=== PATIENT | male | born 1985 | race Hispanic/Latino ===

== ENCOUNTER 2025-04-08 11:52 | Emergency (ER) | payer BC ==
[2025-04-08] MEDS ORDERED: LIDOCAINE 2% W/EPI 1:200,000 MPF 20 ML VIAL IM ONE (12:44)
[2025-04-08] MEDS ORDERED: SMZ./TMP. 800/160 MG TABLET ONE (12:44)
[2025-04-08] MEDS ORDERED: DOXYCYCLINE 100 MG CAP PO ONE (12:45)
[2025-04-08] MEDS ORDERED: MUPIROCIN 2% OINT 22GM TUBE TOP ONE (12:45)
--- NOTE | 2025-04-08 14:17 | ER ---
Nurse's Notes [facility] Name: Wilfrid Brewster Age: 39 yrs Sex: Male : 1985 Arrival Date: 04/08/2025 Time: 11:52 Bed 20 Private MD: Diagnosis: Cutaneous abscess of chest wall-sp I AND D Presentation: 04/08 12:18 Chief complaint: Patient states: abscess to left axilla X 5 days. Coronavirus screen: iw At this time, the client does not indicate any symptoms associated with coronavirus-19. Ebola Screen: No symptoms or risks identified at this time. Initial Sepsis Screen: Does the patient meet any 2 criteria? No. Patient's initial sepsis screen is negative. Does the patient have a suspected source of infection? No. Patient's initial sepsis screen is negative. Risk Assessment: Do you want to hurt yourself or someone else? Patient reports no desire to harm self or others. Onset of symptoms was April 08, 2025. 12:18 Method Of Arrival: Ambulatory iw 12:18 Acuity: KAREN 4 iw Historical: - Allergies: 12:19 No Known Allergies; iw - Home Meds: 12:19 None [Active]; iw - PMHx: 12:19 None; iw - Immunization history:: Adult Immunizations unknown. - Infectious Disease History:: Denies. - Family history:: not pertinent. - Social history:: Smoking status: unknown. Screenin:30 [facility] ED Fall Risk Assessment (Adult) History of falling in the last 3 months, rg5 including since admission No falls in past 3 months (0 pts) Confusion or Disorientation No (0 pts) Intoxicated or Sedated No (0 pts) Impaired Gait No (0 pts) Mobility Assist Device Used No (0 pt) Altered Elimination No (0 pt) Score/Fall Risk Level 3 or more points = High Risk Oriented to surroundings, Maintained a safe environment. Abuse screen: Denies threats or abuse. Nutritional screening: No deficits noted. Tuberculosis screening: No symptoms or risk factors identified. Assessment: 12:30 General: Appears in no apparent distress. comfortable, Behavior is calm, cooperative, rg5 appropriate for age. 12:30 Pain: Complains of pain in left lateral anterior chest Quality of pain is described as rg5 aching. Neuro: Level of Consciousness is awake, alert, obeys commands, Oriented to person, place, time, situation. Cardiovascular: Denies chest pain, Patient's skin is warm and dry. Respiratory: Airway is patent Trachea midline Respiratory effort is even, unlabored, Respiratory pattern is regular, symmetrical. GI: Abdomen is flat, non-distended. : No signs and/or symptoms were reported regarding the genitourinary system. EENT: No signs and/or symptoms were reported regarding the EENT system. Derm: Abscess located on left lateral anterior chest is golf ball sized, Reports pain. Musculoskeletal: Circulation, motion, and sensation intact. Range of motion: intact in all extremities. 13:30 Reassessment: No changes from previously documented assessment. Patient and/or family rg5 updated on plan of care and expected duration. Pain level reassessed. Patient is alert, oriented x 3, equal unlabored respirations, skin warm/dry/pink. 14:34 Reassessment: Patient and/or family updated on plan of care and expected duration. Pain rg5 level reassessed. Patient is alert, oriented x 3, equal unlabored respirations, skin warm/dry/pink. Vital Signs: 12:18 BP 120 / 81; Pulse 64; Resp 16; Pulse Ox 100% on R/A; Weight 83.91 kg; Height 5 ft. 10 iw in. ; 12:21 Temp 99(O); iw 13:00 BP 123 / 81; Pulse 65; Resp 18; Pulse Ox 100% ; rg5 14:00 BP 121 / 82; Pulse 65; Resp 18; Pulse Ox 99% ; rg5 12:18 Body Mass Index 26.54 (83.91 kg, 177.8 cm) iw ED Course: 11:55 Patient arrived in ED. al6 12:14 Pineda Murillo MD is Attending Physician. bib 12:19 Triage completed. iw 12:30 Patient has correct armband on for positive identification. Placed in gown. Door rg5 closed. Noise minimized. 12:39 Reginald Diaz, FELIX is Primary Nurse. rg5 13:56 Wound Culture Sent. rg5 14:00 Assist provider with I \T\ D: of an abscess on Set up I\T\D tray. Performed by Pineda rg 5 Chidi ARELLANO Culture sent to lab. Wound packed. Dressing with 4X4s, Patient tolerated. 14:00 Patient did not have IV access during this emergency room visit. rg5 14:15 Cal Skinner MD is Referral Physician. [facility] Administered Medications: 12:49 Drug: Trimethoprim-Sulfamethoxazole PO (160 mg-800 mg (DS) 1 tablet PO once Route: PO; rg5 14:00 Follow up: Response: No adverse reaction rg5 12:50 Drug: Doxycycline PO 200 mg PO once Route: PO; rg5 13:59 Follow up: Response: No adverse reaction rg5 13:59 Drug: Mupirocin Topical Ointment 2 % 1 application Topical once Route: Topical; Site: rg5 affected area; 13:59 Drug: Lidocaine-Epinephrine Infiltration -1%: (1:100,000) 10 ml 20 ml Infiltration rg5 once; to bedside {Note: given by provider.} Volume: 20 ml; Route: Infiltration; Medication: 12:30 VIS not applicable for this client. rg5 Outcome: 14:16 Discharge ordered by . [facility] 14:34 Discharged to home ambulatory, rg5 14:34 Condition: stable 14:34 Discharge instructions given to patient, Instructed on discharge instructions, Demonstrated understanding of instructions, Prescriptions given X 3, 14:36 Patient left the ED. rg5 Signatures: Pineda Murillo MD MD cha Williams, Irene, RN Reginald Barber RN RN rg Vonnie Matthews
--- NOTE | 2025-04-08 14:17 | EDPHYS ---
Physician Documentation [facility] Name: Wilfrid Brewster Age: 39 yrs Sex: Male : 1985 Arrival Date: 04/08/2025 Time: 11:52 Bed 20 Private MD: ED Physician Pineda Murillo HPI: 04/08 14:07 This 39 yrs old Male presents to ER via Ambulatory with complaints of Abscess. bib 14:07 The patient presents with an abscess of the left lateral anterior chest and left bib lateral posterior chest. Description: The affected area is small, moderate sized, confluent. Onset: The symptoms/episode began/occurred 6 day(s) ago. Possible cause(s): unknown. Associated signs and symptoms: The patient has no apparent associated signs or symptoms. Severity of symptoms: At their worst the symptoms were moderate, in the emergency department the symptoms are actually worse. Historical: - Allergies: 12:19 No Known Allergies; iw - Home Meds: 12:19 None [Active]; iw - PMHx: 12:19 None; iw - Immunization history:: Adult Immunizations unknown. - Infectious Disease History:: Denies. - Family history:: not pertinent. - Social history:: Smoking status: unknown. ROS: 14:07 Constitutional: Negative for fever, chills, and weight loss, Eyes: Negative for injury, bib pain, redness, and discharge, ENT: Negative for injury, pain, and discharge, Neck: Negative for injury, pain, and swelling, Cardiovascular: Negative for chest pain, palpitations, and edema, Respiratory: Negative for shortness of breath, cough, wheezing, and pleuritic chest pain, Abdomen/GI: Negative for abdominal pain, nausea, vomiting, diarrhea, and constipation, Back: Negative for injury and pain, : Negative for injury, bleeding, discharge, and swelling, MS/Extremity: Negative for injury and deformity, Neuro: Negative for headache, weakness, numbness, tingling, and seizure, Psych: Negative for depression, anxiety, suicide ideation, homicidal ideation, and hallucinations, Allergy/Immunology: Negative for hives, rash, and allergies, Endocrine: Negative for neck swelling, polydipsia, polyuria, polyphagia, and marked weight changes, Hematologic/Lymphatic: Negative for swollen nodes, abnormal bleeding, and unusual bruising, 14:07 Skin: Positive for abscess, cellulitis, of the left lateral anterior chest and left lateral posterior chest, Exam: 14:07 Constitutional: This is a well developed, well nourished patient who is awake, alert, bib and in no acute distress. Head/Face: Normocephalic, atraumatic. Eyes: Pupils equal round and reactive to light, extra-ocular motions intact. Lids and lashes normal. Conjunctiva and sclera are non-icteric and not injected. Cornea within normal limits. Periorbital areas with no swelling, redness, or edema. ENT: Nares patent. No nasal discharge, no septal abnormalities noted. Tympanic membranes are normal and external auditory canals are clear. Oropharynx with no redness, swelling, or masses, exudates, or evidence of obstruction, uvula midline. Mucous membranes moist. Neck: Trachea midline, no thyromegaly or masses palpated, and no cervical lymphadenopathy. Supple, full range of motion without nuchal rigidity, or vertebral point tenderness. No Meningismus. Chest/axilla: Normal chest wall appearance and motion. Nontender with no deformity. No lesions are appreciated. Cardiovascular: Regular rate and rhythm with a normal S1 and S2. No gallops, murmurs, or rubs. Normal PMI, no JVD. No pulse deficits. Respiratory: Lungs have equal breath sounds bilaterally, clear to auscultation and percussion. No rales, rhonchi or wheezes noted. No increased work of breathing, no retractions or nasal flaring. Abdomen/GI: Soft, non-tender, with normal bowel sounds. No distension or tympany. No guarding or rebound. No evidence of tenderness throughout. Back: No spinal tenderness. No costovertebral tenderness. Full range of motion. Male : Normal genitalia with no discharge or lesions. MS/ Extremity: Pulses equal, no cyanosis. Neurovascular intact. Full, normal range of motion., bilateral aka Neuro: Awake and alert, GCS 15, oriented to person, place, time, and situation. Cranial nerves II-XII grossly intact. Motor strength 5/5 in all extremities. Sensory grossly intact. Cerebellar exam normal. Normal gait. Psych: Awake, alert, with orientation to person, place and time. Behavior, mood, and affect are within normal limits. 14:07 Skin: abscess, that is moderate sized, of the left lateral anterior chest and left lateral posterior chest, cellulitis, that is moderate, induration, that is moderate is noted, Vital Signs: 12:18 BP 120 / 81; Pulse 64; Resp 16; Pulse Ox 100% on R/A; Weight 83.91 kg; Height 5 ft. 10 iw in. ; 12:21 Temp 99(O); iw 13:00 BP 123 / 81; Pulse 65; Resp 18; Pulse Ox 100% ; rg5 14:00 BP 121 / 82; Pulse 65; Resp 18; Pulse Ox 99% ; rg5 12:18 Body Mass Index 26.54 (83.91 kg, 177.8 cm) iw Procedures: 14:18 I \T\ D: Incision and drainage was performed for an abscess of the left Prepped with [facility] Betadine, Anesthetized with 8 ml's 1% Lidocaine w/ Epi. Incised with #11 blade. Drained moderate amount purulent fluid. serosanguinous fluid. Packed with iodoform gauze, Dressing: non-Adherent dressing, the patient tolerated the procedure well. MDM: 12:14 Medical Screening Exam initiated [facility] 14:13 Differential diagnosis: abscess, allergic reaction, cellulitis, insect bite. Data [facility] reviewed: vital signs, nurses notes, lab test result(s), glucose 95. Consideration of Admission/Observation Escalation of care including admission/observation considered. I considered the following discharge prescriptions or medication management in the emergency department Medications were administered in the Emergency Department. See MAR. Test considered but Not performed: Labs: no cbc , no comp met. Historians other than the Patient: pt. Care significantly affected by the following chronic conditions: none. 04/08 13:04 Order name: Glucose, Ancillary Testing; Complete Time: 14:07 EDHI 04/08 13:55 Order name: Wound Culture me1 04/08 12:33 Order name: Blood Glucose Level; Complete Time: 12:56 bib 04/08 12:33 Order name: Dressing - Wound; Complete Time: 13:59 bib 04/08 12:33 Order name: Gloves, Sterile; Complete Time: 12:49 bib 04/08 12:33 Order name: Setup Suture Tray; Complete Time: 12:49 bib 04/08 12:33 Order name: Misc. Order: IODOFORM; Complete Time: 12:57 [facility] Administered Medications: 12:49 Drug: Trimethoprim-Sulfamethoxazole PO (160 mg-800 mg (DS) 1 tablet PO once Route: PO; rg5 14:00 Follow up: Response: No adverse reaction rg5 12:50 Drug: Doxycycline PO 200 mg PO once Route: PO; rg5 13:59 Follow up: Response: No adverse reaction rg5 13:59 Drug: Mupirocin Topical Ointment 2 % 1 application Topical once Route: Topical; Site: rg5 affected area; 13:59 Drug: Lidocaine-Epinephrine Infiltration -1%: (1:100,000) 10 ml 20 ml Infiltration rg5 once; to bedside {Note: given by provider.} Volume: 20 ml; Route: Infiltration; Disposition Summary: 04/08/25 14:16 Discharge Ordered Notes: Location: Home bib Problem: new bib Symptoms: have improved bib Condition: Stable bib Diagnosis - Cutaneous abscess of chest wall - sp I AND D bib Followup: bib - With: Private Physician - When: 2 - 3 days - Reason: Recheck today's complaints, Continuance of care, Re-evaluation by your physician Followup: bib - With: Cal Skinner MD - When: 2 - 3 days - Reason: Recheck today's complaints, Continuance of care, Re-evaluation by your physician Discharge Instructions: - Discharge Summary Sheet bib - Skin Abscess bib - Incision and Drainage bib - Skin Abscess, [id number] bib - Incision and Drainage, Care After bib Forms: - Medication Reconciliation Form bib - Antibiotic Education bib - Prescription Opioid Use bib - Patient Portal Instructions [facility] - Leadership Thank You Letter bib - Work release form iw Prescriptions: - Centany 2 % Topical ointment - apply 1 application TOPICAL route 3 times per day; 15 gram tube; Refills: 0, [facility] Product Selection Permitted - Doxycycline Hyclate 100 mg Oral Tablet - take 1 tablet ORAL route every 12 hours; 20 tablet; Refills: 0, Product bib Selection Permitted - Bactrim DS 800-160 mg Oral Tablet - take 1 tablet ORAL route every 12 hours for 10 days; 20 tablet; Refills: 0, [facility] Product Selection Permitted - Tylenol-Codeine #3 300mg-30mg Oral tablet - take 2 tablets ORAL route every 6 hours As needed; 16 tablet; Refills: 0, [facility] Product Selection Permitted Signatures: Dispatcher [employer] Pineda Ornelas MD MD cha Williams, Irene, RN RN iw Reginald Diaz, RN RN rg5
[2025-04-08 14:43] VITALS: TEMP 99
[2025-04-08 14:49] VITALS: BP 121/82; O2SAT 99
== END 2025-04-08 14:36 | disposition home or self-care (01) ==
LOC: ER 11:52
PROC: 0H95XZZ Drainage of Chest Skin, External Approach (ICD-10-PCS; principal; 2025-04-08)
DX: L02.213 Cutaneous abscess of chest wall (principal); L03.313 Cellulitis of chest wall
CPT/HCPCS: 82947; 87070; 87077; 87186; 87205; 99284

== ENCOUNTER 2025-04-12 11:38 | Emergency (ER) | payer BC ==
--- NOTE | 2025-04-12 12:00 | ER ---
Nurse's Notes [facility] Name: Wilfrid Brewster Age: 39 yrs Sex: Male : 1985 Arrival Date: 04/12/2025 Time: 11:38 Bed IW3 Private MD: Diagnosis: Cutaneous abscess of left axilla Presentation: 04/12 11:49 Chief complaint: Patient states: ABSCESS TO LEFT AXILLA. HERE FOR CHECK. STATES SEEN ON db 04/08 AND STARTED ON ANTIBIOTICS. Coronavirus screen: Client denies travel out of the [place] in the last 14 days. At this time, the client does not indicate any symptoms associated with coronavirus-19. Ebola Screen: Patient negative for fever greater than or equal to 101.5 degrees Fahrenheit, and additional compatible Ebola Virus Disease symptoms Patient denies exposure to infectious person. Patient denies travel to an Ebola-affected area in the 21 days before illness onset. No symptoms or risks identified at this time. Initial Sepsis Screen: Does the patient meet any 2 criteria? No. Patient's initial sepsis screen is negative. Does the patient have a suspected source of infection? No. Patient's initial sepsis screen is negative. Risk Assessment: Do you want to hurt yourself or someone else? Patient reports no desire to harm self or others. Onset of symptoms. 11:49 Method Of Arrival: Ambulatory db 11:49 Acuity: KAREN 4 db 11:57 Note PACKING FELL OUT. NOTED HOLE IN WOUND. db Triage Assessment: 11:52 General: Appears in no apparent distress. comfortable, Behavior is calm, cooperative. db Pain: Complains of pain in left axilla. Neuro: Level of Consciousness is awake, alert, obeys commands, Oriented to person, place, time, situation. Respiratory: Airway is patent Respiratory effort is even, unlabored, Respiratory pattern is regular. Historical: - Allergies: 11:52 No Known Allergies; db - PMHx: 11:52 None; db - Immunization history:: Adult Immunizations unknown. - Infectious Disease History:: Denies. - Social history:: Smoking status: unknown. Screenin:58 [facility] ED Fall Risk Assessment (Adult) History of falling in the last 3 months, db including since admission No falls in past 3 months (0 pts) Confusion or Disorientation No (0 pts) Intoxicated or Sedated No (0 pts) Impaired Gait No (0 pts) Mobility Assist Device Used No (0 pt) Altered Elimination No (0 pt) Score/Fall Risk Level 0 - 2 = Low Risk Oriented to surroundings, Maintained a safe environment. Abuse screen: Denies threats or abuse. Denies injuries from another. Nutritional screening: No deficits noted. Tuberculosis screening: No symptoms or risk factors identified. Assessment: 11:56 Reassessment: REFRIGERATOR GLAZIER USED FOR PATIENT. db Vital Signs: 11:49 BP 121 / 92; Pulse 65; Resp 16; Temp 97.7(O); Pulse Ox 98% ; db ED Course: 11:48 Patient arrived in ED. db 11:49 Ro Clancy FNP-C is [facility]. kb 11:49 Kevin Choudhary MD is Attending Physician. kb 11:52 Triage completed. db 11:52 Arm band placed on right wrist. db 11:59 Patient has correct armband on for positive identification. Provided Education on: HOME db CARE. 11:59 Assist provider with I \T\ D: Patient tolerated PACKING REMOVED. Patient did not have IV db access during this emergency room visit. Administered Medications: No medications were administered Medication: 11:59 VIS not applicable for this client. db Outcome: 11:59 Discharged to home ambulatory, with family, db 11:59 Condition: stable 11:59 Discharge instructions given to patient, Instructed on discharge instructions, follow up and referral plans. 11:59 Discharge ordered by . kb 12:00 Patient left the ED. db Signatures: Ro Clancy FNP-C FNP-Ckb Benton, Danielle, RN RN db
--- NOTE | 2025-04-12 12:00 | EDPHYS ---
Physician Documentation [facility] Name: Wilfrid Brewster Age: 39 yrs Sex: Male : 1985 Arrival Date: 04/12/2025 Time: 11:38 Bed IW3 Private MD: ED Physician Kevin Choudhary HPI: 04/12 14:19 This 39 yrs old Male presents to ER via Ambulatory with complaints of Abscess kb Recheck. 14:19 Patient is a 39-year-old male who presents for abscess evaluation. States he had an I\T\D kb done on Friday and was not told when he needed to return so he decided to come in today. Packing in place. Denies fever.. Historical: - Allergies: 11:52 No Known Allergies; db - PMHx: 11:52 None; db - Immunization history:: Adult Immunizations unknown. - Infectious Disease History:: Denies. - Social history:: Smoking status: unknown. ROS: 14:19 Constitutional: As per HPI kb Exam: 14:19 Constitutional: This is a well developed, well nourished patient who is awake, alert, kb and in no acute distress. Head/Face: Normocephalic, atraumatic. ENT: Moist Mucous membranes Respiratory: Respirations even and unlabored. No increased work of breathing. Talking in full sentences MS/ Extremity: Pulses equal, no cyanosis. Neurovascular intact. Full, normal range of motion. Neuro: Awake and alert, GCS 15, oriented to person, place, time, and situation. 14:19 Skin: Wound recheck: Abscess: the wound has improved, Vital Signs: 11:49 BP 121 / 92; Pulse 65; Resp 16; Temp 97.7(O); Pulse Ox 98% ; db MDM: 11:49 Medical Screening Exam initiated kb 14:20 Differential diagnosis: cellulitis, Abscess. Data reviewed: vital signs, nurses notes. kb Counseling: I had a detailed discussion with the patient and/or guardian regarding the historical points, exam findings, and any diagnostic results supporting the discharge/admit diagnosis, the need for outpatient follow up, a family practitioner, to return to the emergency department if symptoms worsen or persist or if there are any questions or concerns that arise at home. ED course: Packing removed. Administered Medications: No medications were administered Disposition: 16:05 Co-signature as Attending Physician, Kevin Choudhary MD I reviewed the patient's care rn provided by the Advanced Practice Provider and agree with the diagnosis and treatment plan. Disposition Summary: 04/12/25 11:59 Discharge Ordered Notes: Location: Home kb Condition: Stable kb Diagnosis - Cutaneous abscess of left axilla kb Followup: kb - With: Emergency Department - When: As needed - Reason: Worsening of condition Followup: kb - With: Private Physician - When: 2 - 3 days - Reason: Recheck today's complaints, Continuance of care, Re-evaluation by your physician Discharge Instructions: - Discharge Summary Sheet kb - Skin Abscess, [id number] kb - Incision and Drainage, Care After kb Forms: - Medication Reconciliation Form kb - Antibiotic Education kb - Prescription Opioid Use kb - Patient Portal Instructions kb - Leadership Thank You Letter kb Signatures: Ro Clancy, EFRAIN-C FIRE PATROL-Kevin Neumann MD MD rn Benton, Danielle, RN RN db
[2025-04-12 19:40] VITALS: BP 121/92; TEMP 97.7; O2SAT 98
== END 2025-04-12 12:00 | disposition home or self-care (01) ==
LOC: ER 11:38
DX: Z48.01 Encounter for change or removal of surgical wound dressing (principal)
CPT/HCPCS: 99283